=== PATIENT | female | born 1975 | race Caucasian/White ===

== ENCOUNTER → 2017-05-30 | Outpatient (CLI) | payer OTHER ==
[~2017-05-30] VITALS: Ht 152.4 cm; Wt 61.7 kg
[~2017-05-30] MED LIST: ALLEGRA ALLERG180 MG PO; AMOX1TAB12 PO; DIPROLENE AF 0.50 GM TP; FLONASE16 GM NS; GILTUSS TR TAB1 EACH PO; OSEL75CA PO; TESSALON PERLE100 M1 PO; TESSALON PERLE100 MG PO
== END | disposition home or self-care (01) ==
LOC: PPHC 17:56
DX: Z00.8 Encounter for other general examination (principal)

== ENCOUNTER → 2017-12-19 18:53 | Outpatient (CLI) | payer OTHER | END | disposition home or self-care (01) | LOC: RAD 18:29 | DX: M54.2 Cervicalgia (principal); M54.6 Pain in thoracic spine; M19.042 Primary osteoarthritis, left hand; M19.041 Primary osteoarthritis, right hand ==

== ENCOUNTER 2018-05-17 09:34 | Outpatient (CLI) | payer OTHER | END 2018-05-17 09:45 | disposition home or self-care (01) | LOC: LAB 09:34 | DX: J11.1 Influenza due to unidentified influenza virus with other respiratory manifestations (principal); J06.9 Acute upper respiratory infection, unspecified ==

== ENCOUNTER 2018-05-22 11:25 | Outpatient (CLI) | payer OTHER | END 2018-05-22 11:40 | disposition home or self-care (01) | LOC: LAB 11:25 | DX: J06.9 Acute upper respiratory infection, unspecified (principal) ==

== ENCOUNTER 2018-06-04 10:01 | Outpatient (CLI) | payer OTHER | END 2018-06-04 15:00 | disposition home or self-care (01) | LOC: LAB 10:01 | DX: J30.89 Other allergic rhinitis (principal) ==